=== PATIENT | female | born 1965 ===

== ENCOUNTER 2018-09-22 10:29 | Outpatient (CLI) | payer OTHER ==
[~2018-09-22 10:29] MED LIST: AFRIN SPRAY15 ML NS; ATIVAN1 MG; AYR SALINE NA14.1 GM TP; BUSPAR15 MG; GLIPIZIDE2.5 MG/BO1; LEVOXYL25 MCG; LEXAPRO20 MG; SEROQUEL400 MG; ULTRACET; [UNRECOGNIZED DRUG - OTHER]
== END 2018-09-22 10:31 | disposition home or self-care (01) ==
LOC: SONOGRAMA 10:29
DX: E04.1 Nontoxic single thyroid nodule (principal)

== ENCOUNTER 2022-01-01 10:42 | Outpatient (CLI) | payer OTHER | END 2022-01-01 10:45 | disposition home or self-care (01) | LOC: SONOGRAMA 10:42 | PROVIDERS: ATTEND Pathology Anatomic Pathology & Clinical Pathology | DX: E04.1 Nontoxic single thyroid nodule (principal) ==

== ENCOUNTER 2024-08-28 09:46 | Outpatient (CLI) | payer OTHER | END 2024-08-28 09:51 | disposition home or self-care (01) | LOC: SONOGRAMA 09:46 | PROVIDERS: ATTEND Pathology Anatomic Pathology & Clinical Pathology | DX: D34 Benign neoplasm of thyroid gland (principal); E06.3 Autoimmune thyroiditis; E04.1 Nontoxic single thyroid nodule ==